=== PATIENT | male | born 1960 | race Hispanic/Latino ===

== ENCOUNTER 2017-12-06 08:12 | Emergency (ER) | payer OTHER ==
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
[2017-12-06] MEDS ORDERED: FUL-GLO OP ONE (10:02)
[2017-12-06] MEDS ORDERED: ERYTHROMYCIN OPHTH OINT OU NR (11:03)
[2017-12-06] MEDS ORDERED: CLEOCIN PO ONE (11:20)
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
[2017-12-06] MEDS ORDERED: NACL 0.9% 1000 ML 1,000 ML IV ONE (13:57)
[2017-12-06 16:12] VITALS: BP 136/82
== END 2017-12-06 16:14 | disposition other institution (70) ==
LOC: ED 08:12 → EEVIPCON 08:12 → ED 16:14
DX: S02.81XA Fracture of other specified skull and facial bones, right side, initial encounter for closed fracture (principal); H27.10 Unspecified dislocation of lens; Z88.1 Allergy status to other antibiotic agents; Z88.6 Allergy status to analgesic agent; Z88.0 Allergy status to penicillin; Z91.012 Allergy to eggs; W50.0XXA Accidental hit or strike by another person, initial encounter; Y93.89 Activity, other specified; Y99.8 Other external cause status; Y92.143 Cell of prison as the place of occurrence of the external cause
CPT/HCPCS: 12013; 70480; 96360; 99285; J7030

== ENCOUNTER 2017-12-13 11:12 | Emergency (ER) | payer OTHER ==
[2017-12-13 11:28] VITALS: BP 148/85
--- NOTE | 2017-12-13 12:57 | Emergency Department Report ---
ED Laceration HPI - HPI Chief Complaint: Laceration/Recheck/Suture Stated Complaint: SUTURE REMOVAL Time Seen by Provider: 12/13/17 12:57 ED Review of Systems ROS: Stated complaint: SUTURE REMOVAL Other details as noted in HPI ED Past Medical Hx - Past Medical History Additional medical history: clicking heart valve - Social History Smoking Status: Never Smoker Substance Use Type: Alcohol Laceration Physical Exam - Exam General: Vital signs noted. No distress. Alert and acting appropriately. ED Course Vital Signs 12/13/17 11:25 Temperature 98.2 F Pulse Rate 66 Respiratory 18 Rate Blood Pressure 148/85 O2 Sat by Pulse 97 Oximetry Critical care attestation.: If time is entered above; I have spent that time in minutes in the direct care of this critically ill patient, excluding procedure time. ED Disposition Condition: Stable
--- NOTE | 2017-12-13 13:00 | Emergency Department Report ---
Suture/Staple Removal - [facility] Chief Complaint: Laceration/Recheck/Suture Stated Complaint: SUTURE REMOVAL Time Seen by Provider: 12/13/17 12:57 When Sutures or Pina Placed: 5-7 Days Ago Wound Location: right eye [facility] ED Review of Systems ROS: Stated complaint: SUTURE REMOVAL Other details as noted in HPI Constitutional: denies: chills, fever Eyes: denies: eye pain, eye discharge, vision change ENT: denies: ear pain, throat pain Respiratory: denies: cough, shortness of breath, wheezing Cardiovascular: denies: chest pain, palpitations Endocrine: no symptoms reported Gastrointestinal: denies: abdominal pain, nausea, diarrhea Genitourinary: denies: urgency, dysuria Musculoskeletal: denies: back pain, joint swelling, arthralgia Skin: denies: rash, lesions Neurological: denies: headache, weakness, paresthesias Psychiatric: denies: anxiety, depression Hematological/Lymphatic: denies: easy bleeding, easy bruising ED Past Medical Hx - Past Medical History Additional medical history: clicking heart valve - Social History Smoking Status: Never Smoker Substance Use Type: Alcohol Suture Removal Exam - Exam General: Vital signs noted. No distress. Alert and acting appropriately. Wound: No Pathologic Erythema, No Tenderness, No Drainage, No Pus, No Wound Dehiscence Other Systems: All other systems reviewed and are unremarkable. ED Course Vital Signs 12/13/17 11:25 Temperature 98.2 F Pulse Rate 66 Respiratory 18 Rate Blood Pressure 148/85 O2 Sat by Pulse 97 Oximetry - Reevaluation(s) Reevaluation #1: 12/13/17 12:59 Patient is speaking in full sentences with no signs of distress noted. ED Recheck [facility] - Medical Decision Making Total of 7 sutures has been removed of the right eyelash region. Patient tolerated well. Healing well with no deshience noted. Patient state he is currently taking antibiotics up as prescribed. Patient was educated on proper wound care. Patient was referred to Follow-up with a primary care doctor in 3- 5 days or if symptoms worsen and continue return to emergency room as soon as possible. At time of discharge, the patient does not seem toxic or ill in appearance. No acute signs of distress noted. Patient agrees to discharge treatment plan of care. No further questions noted by the patient. Critical care attestation.: If time is entered above; I have spent that time in minutes in the direct care of this critically ill patient, excluding procedure time. ED Disposition Clinical Impression: Visit for suture removal Disposition: - TO HOME OR SELFCARE Is pt being admited?: No Does the pt Need Aspirin: No Condition: Stable Instructions: Suture Removal (ED) Additional Instructions: Follow-up with a primary care doctor in 3-5 days or if symptoms worsen and continue return to emergency room as soon as possible. Referrals: PRIMARY CAREMD [Referring] - 3-5 Days SARAY BURROUGHS MD [Staff Physician] - 3-5 Days [facility] [Outside] - 3-5 Days [facility] [Outside] - 3-5 Days Forms: Work/School Release Form(ED)
== END 2017-12-13 13:17 | disposition home or self-care (01) ==
LOC: ED 11:12
DX: S05.31XD Ocular laceration without prolapse or loss of intraocular tissue, right eye, subsequent encounter (principal); W26.8XXD Contact with other sharp object(s), not elsewhere classified, subsequent encounter
CPT/HCPCS: 99282